=== PATIENT | male | born 1940 | race Caucasian/White ===

== ENCOUNTER 2021-03-25 10:59 | Inpatient (IN) | payer OTHER, SELFPAY ==
[~2021-03-25] VITALS: Ht 167.6 cm; Wt 56.7 kg
[~2021-03-25 10:59] MED LIST: CIPR500T5 PO
[2021-03-25 11:15] VITALS: BP_SYST 166
[2021-03-25] MEDS ORDERED: methylPREDNISolone SOD SUCC/PF 62.5 MG/ML VIAL IVP ONE (11:15)
--- NOTE | 2021-03-25 11:15 | NUR ---
RECEIVED REPORT FROM [employer]UD MACHINE OPERATOR, VIKKI. PATIENT A&OX3. PATIENT IS RECEIVING A BREATHING TREATMENT FROM [facility]. OSMAN HAS A 20G IV ON LAC UPON ARRIVAL. PATIENT STATES HE WAS FEELING OUT OF BREATH SINCE THIS MORNING.
--- NOTE | 2021-03-25 11:15 | NUR ---
Patient to ER bed 4 to gown for evaluation. Side rails up. Report given to JOSE BOURGEOIS.
--- NOTE | 2021-03-25 11:16 | NUR ---
AT BEDSIDE TO ASSESS PATIENT.
[2021-03-25 12:37] LABS: ANION GAP 8 (5-15); CALCIUM 9.1 mg/dL (8.4-11.0); CHLORIDE 102 mmol/L (98-107); GLUCOSE 106 mg/dL (70-99); POTASSIUM 5.3 mmol/L (3.5-5.1); SODIUM SERUM 142 mmol/L (136-145); UREA NITROGEN, BLOOD 16 mg/dL (8-21)
[2021-03-25 12:39] LABS: BASOPHILS % (AUTO) 0.4 % (0.0-2.0); EOSINOPHILS % (AUTO) 0.4 % (0.0-4.0); HEMATOCRIT 45.3 % (36-54); HEMOGLOBIN 14.9 g/dL (14.0-18.0); LYMPHOCYTES # (AUTO) 0.8 K/uL (1.0-5.5); MEAN CORPUSCULAR HEMOGLOBIN 30 pg (27-31); MEAN CORPUSCULAR HGB CONC 33 % (32-36); MEAN CORPUSCULAR VOLUME 92 fL (79.0-98.0); MONOCYTES # (AUTO) 0.5 K/uL (0.0-1.0); NEUTROPHILS # (AUTO) 5.7 K/uL (1.8-7.7); NEUTROPHILS % (AUTO) 81.2 % (40.0-70.0); PLATELET COUNT (AUTO) 216 K/uL (130-430); RED BLOOD CELL COUNT(AUTO) 4.94 MIL/uL (4.2-6.2)
[2021-03-25 12:41] LABS: INR 1.1 (0.80-1.20); PROTHROMBIN TIME 11.5 SECS (9.5-12.5)
[2021-03-25 12:46] LABS: ALANINE AMINOTRANSFERASE 34 U/L (12-78); ALBUMIN 3.7 g/dL (3.4-4.8); ASPARTATE AMINOTRANSFERASE 48 U/L (10-37); TOTAL BILIRUBIN 0.7 mg/dL (0.0-1.0)
[2021-03-25] MEDS ORDERED: ALBUTEROL SULFATE 0.083% 2.5 MG/3 ML VIAL.NEB INH PRN (14:45)
[2021-03-25] MEDS ORDERED: IPRATROPIUM BROM 0.5 MG/2.5 ML VIAL.NEB (ATROVENT) INH PRN (14:45)
[2021-03-25 14:55] VITALS: BP_SYST 166
[2021-03-25] MEDS ORDERED: cefTRIAXone 1 GM VIAL ONE (17:32)
[2021-03-25] MEDS ORDERED: AZITHROMYCIN 500 MG/VIAL (ZITHROMAX) IV ONE (17:33)
[2021-03-25] MEDS: cefTRIAXone 1 GM in D5W 50 ML IV SCH (17:44)
[2021-03-25] MEDS: AZITHROMYCIN 500 MG in NS 250 ML IV SCH (18:15)
[2021-03-25] MEDS: IPRATROPIUM BROM 0.5 MG/2.5 ML VIAL.NEB (ATROVENT) INH SCH (19:00)
[2021-03-25] MEDS: ALBUTEROL SULFATE 0.083% 2.5 MG/3 ML VIAL.NEB INH SCH (19:00)
--- NOTE | 2021-03-25 19:49 | NUR ---
patient in bed, comfortable, needs attended. denies any pain or discomfort at this time.
--- NOTE | 2021-03-25 20:06 | NUR ---
patient transferred to [facility], report given to CHRISTELLE Cheng.
[2021-03-26 00:03] VITALS: BP_SYST 154
[2021-03-26] MEDS: ALBUTEROL SULFATE 0.083% 2.5 MG/3 ML VIAL.NEB INH SCH ×4 (03:49→19:00)
[2021-03-26] MEDS: IPRATROPIUM BROM 0.5 MG/2.5 ML VIAL.NEB (ATROVENT) INH SCH ×4 (03:49→19:00)
[2021-03-26 07:44] VITALS: BP_SYST 162
[2021-03-26] MEDS ORDERED: methylPREDNISolone SOD SUCC/PF 62.5 MG/ML VIAL IVP ONE (09:30)
[2021-03-26 12:00] VITALS: BP_SYST 165
[2021-03-26] MEDS: cefTRIAXone 1 GM in D5W 50 ML IV SCH (15:34)
[2021-03-26 16:00] VITALS: BP_SYST 145
[2021-03-26] MEDS: AZITHROMYCIN 500 MG in NS 250 ML IV SCH (17:55)
[2021-03-26 20:00] VITALS: BP_SYST 151
[2021-03-26] MEDS: methylPREDNISolone SOD SUCC/PF 62.5 MG/ML VIAL IVP SCH (21:16)
[2021-03-27] VITALS: BP_SYST 148
[2021-03-27] MEDS: ALBUTEROL SULFATE 0.083% 2.5 MG/3 ML VIAL.NEB INH SCH ×2 (01:00→07:00)
[2021-03-27] MEDS: IPRATROPIUM BROM 0.5 MG/2.5 ML VIAL.NEB (ATROVENT) INH SCH ×2 (01:00→07:00)
[2021-03-27 08:00] VITALS: BP_SYST 145
[2021-03-27] MEDS: methylPREDNISolone SOD SUCC/PF 62.5 MG/ML VIAL IVP SCH ×2 (09:00→21:49)
[2021-03-27 11:56] VITALS: BP_SYST 142
[2021-03-27 15:57] VITALS: BP_SYST 136
[2021-03-27 16:00] VITALS: BP_SYST 137
[2021-03-27] MEDS: cefTRIAXone 1 GM in D5W 50 ML IV SCH (16:59)
[2021-03-27] MEDS: AZITHROMYCIN 500 MG in NS 250 ML IV SCH (17:25)
[2021-03-27 20:00] VITALS: BP_SYST 124
[2021-03-28] VITALS: BP_SYST 132
[2021-03-28] MEDS: IPRATROPIUM BROM 0.5 MG/2.5 ML VIAL.NEB (ATROVENT) INH SCH (07:25)
[2021-03-28] MEDS: ALBUTEROL SULFATE 0.083% 2.5 MG/3 ML VIAL.NEB INH SCH ×2 (07:25→14:21)
[2021-03-28 08:00] VITALS: BP_SYST 139
[2021-03-28] MEDS: methylPREDNISolone SOD SUCC/PF 62.5 MG/ML VIAL IVP SCH (08:11)
[2021-03-28] MEDS ORDERED: PRED20TA PO (09:42)
[2021-03-28] MEDS ORDERED: ALBU2.5V7 INH (09:42)
[2021-03-28] MEDS ORDERED: LEVO500T90 PO (09:42)
--- NOTE | 2021-03-28 11:24 | NUR ---
ATTENDING MD DR EASLEY ORDERED O2 FOR HOME USE/ NEBULIZER FOR [facility]/HCP CASE MGMT. LEFT A MESSAGE WITH CM MS LINDA WATERS.
[2021-03-28 12:00] VITALS: BP_SYST 133
--- NOTE | 2021-03-28 12:55 | NUR ---
[facility] CALLED TO GIVE DELIVERY INFO FOR O2 AND NEBULIZER TO BE BETWEEN 1600 TO 2000.. SPOKE TO RADHA, TEL [phone].
[2021-03-28 13:59] VITALS: BP_SYST 139
--- NOTE | 2021-03-28 15:55 | NUR ---
RECEIVED THE PORTABLE O2 AND NEBULIZER FROM [facility].
--- NOTE | 2021-03-28 15:56 | NUR ---
ATTENDING MD DR EASLEY WAS CALLED, RE: TO INFORM THAT PORTABLE O2 AND NEBULIZER HAVE BEEN DELIVERED. WAITING FOR A FORMAL DISCHARGE ORDER TO HOME TODAY.
[2021-03-28 16:27] VITALS: BP_SYST 133
== END 2021-03-28 18:00 | disposition home or self-care (01) | DRG 193 ==
LOC: SED 10:59 → STU 13:23 → SMU 03-28 12:00
PROVIDERS: ADMIT Internal Medicine Hospice and Palliative Medicine; ATTEND Internal Medicine Hospice and Palliative Medicine
DX: J18.9 Pneumonia, unspecified organism (principal); J96.02 Acute respiratory failure with hypercapnia; J96.01 Acute respiratory failure with hypoxia; J44.1 Chronic obstructive pulmonary disease with (acute) exacerbation; J44.0 Chronic obstructive pulmonary disease with (acute) lower respiratory infection; C34.11 Malignant neoplasm of upper lobe, right bronchus or lung; F17.210 Nicotine dependence, cigarettes, uncomplicated; I10 Essential (primary) hypertension; Z20.822 Contact with and (suspected) exposure to COVID-19; Z79.2 Long term (current) use of antibiotics; Z79.899 Other long term (current) drug therapy
CPT/HCPCS: 36415; 36600; 71045; 71275; 76376; 80053; 82803-TC; 83605; 84484; 85025; 85610-TC; 85730-TC; 87040; 93005; 94640; 94760; 96374; 99291; G0378; J0456; J0696; J2930; J7050; J7060; J7613; Q9967